=== PATIENT | male | born 1995 | race Caucasian/White ===

== ENCOUNTER 2016-12-01 08:30 | Emergency (ER) | payer OTHER ==
[2016-12-01 08:37] VITALS: RESP 18; O2SAT 96
--- NOTE | 2016-12-01 08:40 | EDPHY ---
H & P Stated Complaint: R flank pain since 11/30/16 - getting worse. Time Seen by Provider: 12/01/16 08:40 HPI/ROS: CHIEF COMPLAINT: Right flank pain HISTORY OF PRESENT ILLNESS: The patient presents to the ED with a 2 day history of acute right flank pain and hematuria. The patient has a prior history of ureterolithiasis 3 years ago. This passed spontaneously. The patient denies any fever, diarrhea, NSAID usage or other significant past medical history. The patient reports his pain is currently an 8/10. It does radiate to his right groin. It is predominantly in his right flank. REVIEW OF SYSTEMS: A comprehensive 10 point review of systems is otherwise negative aside from elements mentioned in the history of present illness. Source: Patient Exam Limitations: No limitations - Personal History Current Tetanus Diphtheria and Acellular Pertussis (TDAP): Yes - Medical/Surgical History Hx Asthma: No Hx Chronic Respiratory Disease: No Hx Diabetes: No Hx Cardiac Disease: No Hx Renal Disease: No Hx Cirrhosis: No Hx Alcoholism: No Hx HIV/AIDS: No Hx Splenectomy or Spleen Trauma: No Other PMH: Kidney stones x 1. - Social History Smoking Status: Never smoked - Physical Exam Exam: General Appearance: Alert, no distress Eyes: Pupils equal and round no pallor or injection ENT, Mouth: Mucous membranes moist Respiratory: There are no retractions, lungs are clear to auscultation Cardiovascular: Regular rate and rhythm Gastrointestinal: Tenderness to palpation right mid quadrant Back: Right CVA tenderness Neurological: Grossly normal motor exam Skin: Warm and dry, no rashes Musculoskeletal: Neck is supple nontender Extremities: symmetrical, full range of motion Constitutional: Initial Vital Signs Temperature (C) 36.5 C 12/01/16 08:34 Heart Rate 70 12/01/16 08:34 Respiratory Rate 18 12/01/16 08:34 Blood Pressure 116/60 12/01/16 08:34 O2 Sat (%) 96 12/01/16 08:34 O2 Delivery Mode Room Air Allergies/Adverse Reactions: No Known Allergies Allergy (Unverified 12/01/16 08:37) Home Medications: Medication Instructions Recorded Ondansetron Odt [Zofran Odt] 4 mg PO Q4PRN PRN #20 tab 12/01/16 Tamsulosin HCl [Flomax] 0.4 mg PO DAILY #10 cap 12/01/16 oxyCODONE/APAP 5/325 [Percocet 1 - 2 tab PO Q6H PRN #20 tab 12/01/16325] Medical Decision Making - Diagnostics Imaging Results: Imaging Impressions Abdomen X-Ray 12/01/16 08:48 Impression: Findings consistent with a right abdominal ureteral stone. ED Course/Re-evaluation: The patient presents to the ED hematuria and right flank pain consistent clinically with ureterolithiasis. The patient had an IV established. He received 15 mg of Toradol and 0.4 mg of Flomax. The patient's KUB does confirm the presence of a right mid ureteral stone. The patient's renal function is noted to be within normal limits. The patient was re-evaluated at 9:30 a.m.. He is currently feeling better. He will be discharged home with customary kidney stone aftercare instructions. Differential Diagnosis: Differential diagnosis considered includes nephrolithiasis, ureterolithiasis, pyelonephritis, myofascial strain - Data Points Laboratory Results: Laboratory Results 12/01/16 08:45 12/01/16 12/01/16 08:45 08:45 Sodium 141 mEq/L mEq/L (134-144) Potassium 4.5 mEq/L mEq/L (3.5-5.2) Chloride 103 mEq/L mEq/L (97-110) Carbon Dioxide 23 mEq/l mEq/l (22-31) Anion Gap 15 mEq/L mEq/L (8-16) BUN 24 mg/dL H mg/dL (7-23) Creatinine 0.9 mg/dL mg/dL (0.7-1.3) Estimated GFR > 60 Glucose 90 mg/dL mg/dL (70-100) Calcium 9.9 mg/dL mg/dL (8.5-10.4) Specimen Hemolysis 108 Urine Color YELLOW Urine Appearance HAZY Urine pH 6.0 (5.0-7.5) Ur Specific [place] 1.025 (1.002-1.030) Urine Protein 1+ H (NEGATIVE) Urine Ketones NEGATIVE (NEGATIVE) Urine Blood 3+ H (NEGATIVE) Urine Nitrate NEGATIVE (NEGATIVE) Urine Bilirubin NEGATIVE (NEGATIVE) Urine Urobilinogen NEGATIVE EU EU (0.2-1.0) Ur Leukocyte Esterase NEGATIVE (NEGATIVE) Urine RBC 50-182 /hpf H /hpf (0-3) Urine WBC 1-3 /hpf /hpf (0-3) Ur Epithelial Cells NONE SEEN /lpf /lpf (NONE-1+) Urine Mucus TRACE /lpf /lpf (NONE-1+) Urine Glucose NEGATIVE (NEGATIVE) Medications Given: Discontinued Medications Acetaminophen (Tylenol) 1,000 mg PO EDNOW ONE Stop: 12/01/16 08:48 Last Admin: 12/01/16 08:54 Dose: 1,000 mg Ketorolac Tromethamine (Toradol) 15 mg IVP EDNOW ONE Stop: 12/01/16 08:48 Last Admin: 12/01/16 08:54 Dose: 15 mg Tamsulosin HCl (Flomax) 0.4 mg PO EDNOW ONE Stop: 12/01/16 08:49 Last Admin: 12/01/16 08:53 Dose: 0.4 mg Departure - Departure Disposition: Home, Routine, Self-Care Clinical Impression: Kidney stone on right side Condition: Good Instructions: Kidney Stones (ED) Additional Instructions: 1. Take Ibuprofen or Motrin 600 mg by mouth three times a day. 2. Percocet as needed for severe pain 3. Flomax as directed 4. Zofran as needed for nausea 5. Strain urine as directed 6. Return to the Emergency Department for intractable pain, fever or vomiting. 7. Followup with the urologist you have been referred to for unimproved symptoms. Referrals: Kenneth Rand MD [Medical Doctor] - As per Instructions Stand Alone Forms: School Excuse Prescriptions: Ondansetron Odt [Zofran Odt] 4 mg PO Q4PRN PRN #20 tab PRN Reason: For Nausea oxyCODONE/APAP 5/325 [Percocet 5/325] 1 - 2 tab PO Q6H PRN #20 tab PRN Reason: Pain, Severe Tamsulosin HCl [Flomax] 0.4 mg PO DAILY #10 cap
[2016-12-01] MEDS ORDERED: KETOROLAC 15 MG/1 ML SDV IVP ONE (08:47)
[2016-12-01] MEDS ORDERED: ACETAMINOPHEN 500 MG TAB PO ONE (08:47)
[2016-12-01] MEDS ORDERED: TAMSULOSIN HCL 0.4 MG CAP PO ONE (08:48)
[2016-12-01] MEDS ORDERED: ACETAMINOPHEN 500 MG TAB ONE (08:56)
[2016-12-01 08:59] LABS: COLOR YELLOW; LEUKOCYTE ESTERASE,URINE NEGATIVE (NEGATIVE); NITRITE,URINE NEGATIVE (NEGATIVE)
[2016-12-01 09:03] LABS: MUCUS TRACE /lpf (NONE-1+); RBC,URINE 50-182 /hpf (0-3)
[2016-12-01 09:05] LABS: ANION GAP 15 mEq/L (8-16); CALCIUM 9.9 mg/dL (8.5-10.4); CARBON DIOXIDE 23 mEq/l (22-31); CHLORIDE 103 mEq/L (97-110); CREATININE 0.9 mg/dL (0.7-1.3); GLOMERULAR FILTRATION RATE > 60; GLUCOSE 90 mg/dL (70-100); POTASSIUM 4.5 mEq/L (3.5-5.2); SODIUM 141 mEq/L (134-144); SPECIMEN HEMOLYSIS 108
[2016-12-01 10:30] VITALS: BP 120/59; PULSE 62; TEMP 98.4
== END 2016-12-01 10:27 | disposition home or self-care (01) ==
DX: N20.0 Calculus of kidney (principal)
CPT/HCPCS: 96374; J1885

== ENCOUNTER → 2017-02-17 | Outpatient (CLI) | payer OTHER | LOC: FIMAGING 12:39 | PROVIDERS: ATTEND Specialist | DX: Z87.442 Personal history of urinary calculi (principal) ==

== ENCOUNTER → 2017-04-07 | Outpatient (CLI) | payer OTHER | LOC: FIMAGING 08:58 | PROVIDERS: ATTEND Specialist | DX: N28.9 Disorder of kidney and ureter, unspecified (principal) ==